=== PATIENT | female | born 1970 | race African-American/Black ===

== ENCOUNTER 2016-07-01 05:26 | Emergency (ER) | payer MEDICAID ==
[~2016-07-01] VITALS: Ht 165.1 cm; Wt 50.8 kg
[2016-07-01] MEDS ORDERED: diphenhdrAMINE HCL 25 MG CAP PO ONE ×2 (05:49→06:15)
[2016-07-01 06:21] VITALS: BP 118/77
== END 2016-07-01 06:53 | disposition home or self-care (01) ==
LOC: ER 05:27
DX: T78.40XA Allergy, unspecified, initial encounter (principal); X58.XXXA Exposure to other specified factors, initial encounter; Z87.440 Personal history of urinary (tract) infections; Z88.2 Allergy status to sulfonamides
CPT/HCPCS: 82962

== ENCOUNTER 2016-10-30 18:17 | Emergency (ER) | payer MEDICAID ==
[~2016-10-30] VITALS: Ht 165.1 cm; Wt 50.8 kg
[2016-10-30 18:45] VITALS: BP 113/76
[2016-10-30] MEDS ORDERED: IBUPROFEN 600 MG TAB PO ONE (21:30)
[2016-10-30] MEDS ORDERED: BACLOFEN 10 MG TAB PO ONE (21:30)
[2016-10-30] MEDS ORDERED: ACETAMINOPHEN 500 MG TAB PO ONE (22:15)
== END 2016-10-31 00:18 | disposition home or self-care (01) ==
LOC: ER 18:19
DX: S46.811A Strain of other muscles, fascia and tendons at shoulder and upper arm level, right arm, initial encounter (principal); Z88.1 Allergy status to other antibiotic agents; V43.52XA Car driver injured in collision with other type car in traffic accident, initial encounter; Y93.89 Activity, other specified; Y92.89 Other specified places as the place of occurrence of the external cause; Y99.8 Other external cause status
CPT/HCPCS: 72040

== ENCOUNTER 2017-03-18 15:16 | Emergency (ER) | payer MEDICAID ==
[~2017-03-18] VITALS: Ht 165.1 cm; Wt 55.3 kg
[2017-03-18 15:42] VITALS: BP 119/83
[2017-03-18 16:50] LABS: Basophils # (auto) 0.1 uL; Basophils % (auto) 1.2 % (0.0-2.0); Eosinophils # (auto) 0.1 uL; Eosinophils % (auto) 1.9 % (0.0-7.0); Hematocrit 44.5 % (36.0-46.0); Hemoglobin 14.5 g/dL (12.2-16.2); Lymphocytes # (auto) 1.2 uL; Mean Corpuscular Hemoglobin 29.6 pg (28.0-32.0); Mean Corpuscular Hgb Conc. 32.6 g/dL (32.0-36.0); Mean Corpuscular Volume 90.8 fL (80.0-100.0); Monocytes # (auto) 0.4 uL; Monocytes % (auto) 6.7 % (0.0-12.0); Neutrophils # (auto) 3.5 uL; Neutrophils % (auto) 67.2 % (37.0-80.0); Nucleated Red Blood Cells % 0.2 %; Platelet Count (auto) 291 10^3/uL (140-450); Red Cell Distribution Width 13.4 % (11.8-14.3); White Blood Cell 5.2 10^3/uL (4.4-10.8)
[2017-03-18 16:56] LABS: Urine Bacteria NONE SEEN /hpf (None Seen); Urine Blood Negative /uL (Negative); Urine Specific Gravity 1.018 (1.001-1.035); Urine WBC 1 /hpf (0 - 5)
[2017-03-18 17:04] LABS: Albumin 4.2 g/dL (3.4-5.0); BUN/Creatinine Ratio 16.8; Calcium 9.2 mg/dL (8.5-10.1); Potassium 3.8 mmol/L (3.5-5.1)
[2017-03-18 17:07] LABS: Bilirubin, Total 0.4 mg/dL (0.2-1.0)
== END 2017-03-18 20:01 | disposition left against medical advice (07) ==
LOC: ER 15:16
DX: R10.2 Pelvic and perineal pain (principal); M54.5 Low back pain; Z53.21 Procedure and treatment not carried out due to patient leaving prior to being seen by health care provider
CPT/HCPCS: 36415; 80053; 81001; 81025; 85025

== ENCOUNTER 2017-04-04 12:54 | Emergency (ER) | payer MEDICAID ==
[~2017-04-04] VITALS: Ht 165.1 cm; Wt 55.3 kg
[2017-04-04 14:16] LABS: Basophils # (auto) 0 uL; Basophils % (auto) 0.6 % (0.0-2.0); Eosinophils # (auto) 0.1 uL; Eosinophils % (auto) 1.3 % (0.0-7.0); Hematocrit 41.8 % (36.0-46.0); Hemoglobin 13.7 g/dL (12.2-16.2); Lymphocytes # (auto) 1.2 uL; Lymphocytes % (auto) 30.5 % (10.0-50.0); Mean Corpuscular Hemoglobin 29.6 pg (28.0-32.0); Mean Corpuscular Hgb Conc. 32.9 g/dL (32.0-36.0); Mean Corpuscular Volume 89.9 fL (80.0-100.0); Monocytes # (auto) 0.3 uL; Monocytes % (auto) 8.1 % (0.0-12.0); Neutrophils # (auto) 2.4 uL; Neutrophils % (auto) 59.5 % (37.0-80.0); Platelet Count (auto) 281 10^3/uL (140-450); Red Blood Cells 4.65 10^6/uL (4.0-5.20)
[2017-04-04 14:28] LABS: Alanine Aminotransferase 23 U/L (13-56); Alkaline Phosphatase 53 U/L (45-117); Anion Gap 8 (5-15); Aspartate Aminotransferase 18 U/L (15-37); BUN/Creatinine Ratio 12.2; Bilirubin, Total 0.6 mg/dL (0.2-1.0); Blood Urea Nitrogen 14 mg/dL (7-18); Calcium 8.7 mg/dL (8.5-10.1); Carbon Dioxide 27 mmol/L (21-32); Chloride 107 mmol/L (98-107); GFR African American 65 mL/min; GFR Non-African American 54 mL/min; Glucose 89 mg/dL (74-106); Potassium 3.8 mmol/L (3.5-5.1); Sodium 142 mmol/L (136-145); Total Protein 7.8 g/dL (6.4-8.2)
[2017-04-04 20:41] VITALS: BP 121/79
== END 2017-04-04 21:41 | disposition home or self-care (01) ==
LOC: ER 12:54
DX: R07.89 Other chest pain (principal); Z88.2 Allergy status to sulfonamides
CPT/HCPCS: 36415; 71046; 80053; 84484; 85025; 93005

== ENCOUNTER 2017-10-16 22:44 | Emergency (ER) | payer MEDICAID ==
[~2017-10-16] VITALS: Ht 165.1 cm; Wt 52.6 kg
[2017-10-17] MEDS ORDERED: cefTRIAXone SOD 1,000 MG VL IM ONE (00:15)
[2017-10-17] MEDS ORDERED: KETOROLAC TROMETH 30 MG/ML 1ML VIAL IM ONE (00:15)
[2017-10-17] MEDS ORDERED: SODIUM CHLORIDE 0.9% 500 ML IV ONE (01:30)
[2017-10-17] MEDS ORDERED: ONDANSETRON HCL 4 MG/2 ML VIAL IV ONE (01:30)
[2017-10-17] MEDS ORDERED: HYDROmorphone HCL 2 MG/ML VL IV ONE (01:30)
[2017-10-17] MEDS ORDERED: cefTRIAXone 1GM/10ml IVPUSH 10 ML IV ONE (01:36)
[2017-10-17 01:49] VITALS: BP 110/83
== END 2017-10-17 03:11 | disposition home or self-care (01) ==
LOC: ER 22:45
DX: R10.9 Unspecified abdominal pain (principal); R11.10 Vomiting, unspecified; K08.89 Other specified disorders of teeth and supporting structures; Z88.2 Allergy status to sulfonamides
CPT/HCPCS: 96361; 96372; 96374; 96375; 99284; J0696; J1170; J1885; J2405; J7030

== ENCOUNTER 2018-10-03 10:56 | Emergency (ER) | payer MEDICAID ==
[~2018-10-03] VITALS: Ht 165.1 cm; Wt 54.9 kg
[2018-10-03 12:42] VITALS: BP 114/69
[2018-10-03 13:57] LABS: Basophils # (auto) 0 uL; Basophils % (auto) 1.3 % (0.0-2.0); Eosinophils # (auto) 0.1 uL; Hematocrit 44.8 % (36.0-46.0); Hemoglobin 14.7 g/dL (12.2-16.2); Lymphocytes # (auto) 1.2 uL; Lymphocytes % (auto) 31.3 % (10.0-50.0); Mean Corpuscular Hemoglobin 29.5 pg (28.0-32.0); Mean Corpuscular Hgb Conc. 32.8 g/dL (32.0-36.0); Mean Corpuscular Volume 89.9 fL (80.0-100.0); Monocytes # (auto) 0.4 uL; Monocytes % (auto) 9.6 % (0.0-12.0); Neutrophils # (auto) 2.1 uL; Neutrophils % (auto) 55.8 % (37.0-80.0); Nucleated Red Blood Cells % 0.3 %; Platelet Count (auto) 274 10^3/uL (140-450); Red Blood Cells 4.98 10^6/uL (4.0-5.20); Red Cell Distribution Width 13.2 % (11.8-14.3); White Blood Cell 3.8 10^3/uL (4.4-10.8)
[2018-10-03 14:00] LABS: Urine Bacteria NONE SEEN /hpf (None Seen); Urine Blood Negative /uL (Negative); Urine Specific Gravity 1.012 (1.001-1.035); Urine WBC 1 /hpf (0 - 5)
[2018-10-03 14:08] LABS: Albumin 4.4 g/dL (3.4-5.0); Calcium 8.9 mg/dL (8.5-10.1); Potassium 3.6 mmol/L (3.5-5.1)
[2018-10-03 14:09] LABS: BUN/Creatinine Ratio 11.6
[2018-10-03 14:11] LABS: Bilirubin, Total 0.4 mg/dL (0.2-1.0); Total Protein 8.2 g/dL (6.4-8.2)
== END 2018-10-03 14:27 | disposition home or self-care (01) ==
LOC: ER 10:57
DX: N83.202 Unspecified ovarian cyst, left side (principal); K21.9 Gastro-esophageal reflux disease without esophagitis; Z87.440 Personal history of urinary (tract) infections; Z88.2 Allergy status to sulfonamides
CPT/HCPCS: 36415; 74176; 80053; 81001; 85025

== ENCOUNTER 2018-12-01 05:28 | Emergency (ER) | payer MEDICAID ==
[~2018-12-01] VITALS: Ht 165.1 cm; Wt 52.6 kg
[2018-12-01 07:19] LABS: Basophils # (auto) 0 uL; Basophils % (auto) 0.8 % (0.0-2.0); Eosinophils # (auto) 0.1 uL; Eosinophils % (auto) 2.2 % (0.0-7.0); Hematocrit 39.6 % (36.0-46.0); Lymphocytes % (auto) 23.9 % (10.0-50.0); Mean Corpuscular Hemoglobin 29.5 pg (28.0-32.0); Mean Corpuscular Hgb Conc. 32.9 g/dL (32.0-36.0); Mean Corpuscular Volume 89.6 fL (80.0-100.0); Monocytes # (auto) 0.4 uL; Monocytes % (auto) 9.6 % (0.0-12.0); Neutrophils # (auto) 2.6 uL; Neutrophils % (auto) 63.5 % (37.0-80.0); Nucleated Red Blood Cells % 0.1 %; Platelet Count (auto) 223 10^3/uL (140-450); Red Blood Cells 4.42 10^6/uL (4.0-5.20); Red Cell Distribution Width 13.4 % (11.8-14.3); White Blood Cell 4.1 10^3/uL (4.4-10.8)
[2018-12-01 07:35] LABS: Alanine Aminotransferase 13 U/L (13-56); Albumin 3.8 g/dL (3.4-5.0); Anion Gap 6 (5-15); Aspartate Aminotransferase 9 U/L (15-37); BUN/Creatinine Ratio 9.9; Blood Urea Nitrogen 10 mg/dL (7-18); Calcium 8.5 mg/dL (8.5-10.1); Carbon Dioxide 24 mmol/L (21-32); Chloride 110 mmol/L (98-107); GFR African American 75 mL/min; GFR Non-African American 62 mL/min; Glucose 95 mg/dL (74-106); Potassium 3.9 mmol/L (3.5-5.1); Sodium 140 mmol/L (136-145)
[2018-12-01 07:40] LABS: Alkaline Phosphatase 48 U/L (45-117); Bilirubin, Total 0.5 mg/dL (0.2-1.0); Total Protein 7.2 g/dL (6.4-8.2)
[2018-12-01 07:47] VITALS: BP 108/68
== END 2018-12-01 08:50 | disposition home or self-care (01) ==
LOC: ER 05:28
DX: F41.9 Anxiety disorder, unspecified (principal); R07.89 Other chest pain; Z88.2 Allergy status to sulfonamides
CPT/HCPCS: 36415; 71045; 80053; 83880; 84484; 85025; 93005

== ENCOUNTER 2020-05-28 19:14 | Emergency (ER) | payer MEDICAID ==
[~2020-05-28] VITALS: Ht 165.1 cm; Wt 50.8 kg
[2020-05-28 23:37] LABS: Basophils # (auto) 0 10 ^3/uL (0-0.2); Basophils % (auto) 0.9 % (0.0-2.0); Eosinophils # (auto) 0.1 10 ^3/uL (0-0.8); Eosinophils % (auto) 1.8 % (0.0-7.0); Hematocrit 40.4 % (36.0-46.0); Hemoglobin 13.5 g/dL (12.2-16.2); Lymphocytes # (auto) 1.6 10 ^3/uL (0.4-5.4); Lymphocytes % (auto) 32.4 % (10.0-50.0); Mean Corpuscular Hemoglobin 29.4 pg (28.0-32.0); Mean Corpuscular Hgb Conc. 33.3 g/dL (32.0-36.0); Mean Corpuscular Volume 88.3 fL (80.0-100.0); Monocytes # (auto) 0.4 10 ^3/uL (0-1.3); Monocytes % (auto) 8.6 % (0.0-12.0); Neutrophils # (auto) 2.7 10 ^3/uL (1.6-8.6); Neutrophils % (auto) 56.3 % (37.0-80.0); Nucleated Red Blood Cells % 0.1 %; Platelet Count (auto) 293 10^3/uL (140-450); Red Blood Cells 4.58 10^6/uL (4.0-5.20); Red Cell Distribution Width 12.9 % (11.8-14.3); White Blood Cell 4.9 10^3/uL (4.4-10.8)
[2020-05-28 23:48] LABS: Anion Gap 9 (5-15); Blood Urea Nitrogen 13 mg/dL (7-18); Calcium 8.8 mg/dL (8.5-10.1); Carbon Dioxide 23 mmol/L (21-32); Chloride 106 mmol/L (98-107); Glucose 79 mg/dL (74-106); Potassium 3.3 mmol/L (3.5-5.1); Sodium 138 mmol/L (136-145)
[2020-05-28 23:50] LABS: BUN/Creatinine Ratio 13.1; Blood Alcohol < 3.0 mg/dL (0-5); GFR African American 76 mL/min; GFR Non-African American 63 mL/min
[2020-05-28 23:53] LABS: INR 1.14 (0.9-1.15); Partial Thromboplastin Time 30.5 sec (23.0-31.2)
[2020-05-29 00:11] LABS: Alanine Aminotransferase 22 U/L (13-56); Alkaline Phosphatase 59 U/L (45-117); Aspartate Aminotransferase 12 U/L (15-37); Bilirubin, Total 0.5 mg/dL (0.2-1.0); Total Protein 7.6 g/dL (6.4-8.2)
[2020-05-29 03:18] LABS: Urine Bacteria NONE SEEN /hpf (None Seen); Urine Blood Negative /uL (Negative); Urine Specific Gravity 1.012 (1.001-1.035); Urine WBC <1 /hpf (0 - 5)
[2020-05-29 04:00] VITALS: BP 142/86
[2020-05-29] MEDS ORDERED: LIDOCAINE VISCOUS 2% 15ML UD PO ONE (05:30)
[2020-05-29] MEDS ORDERED: ALUM & MAG HYDROX-SIMETH LIQ(MAALOX) 30 ML PO ONE (05:30)
== END 2020-05-29 05:35 | disposition home or self-care (01) ==
LOC: ER 19:14
DX: K21.9 Gastro-esophageal reflux disease without esophagitis (principal); R07.9 Chest pain, unspecified; R51.9 Headache, unspecified; Z88.2 Allergy status to sulfonamides
CPT/HCPCS: 36415; 36600; 70450; 71045; 80053; 80320; 81001; 82805; 83880; 84484; 85025; 85379; 85610; 85730; 93005

== ENCOUNTER 2022-11-08 09:01 | Emergency (ER) | payer MEDICAID ==
[~2022-11-08] VITALS: Ht 165.1 cm; Wt 52.2 kg
[2022-11-08] MEDS ORDERED: ACETAMINOPHEN 500 MG TAB PO ONE (11:45)
[2022-11-08 12:16] VITALS: BP 120/80; PULSE 94; RESP 16; TEMP 98; O2SAT 97
[2022-11-08] MEDS ORDERED: ACET-1080 PO (12:17)
[2022-11-08] MEDS ORDERED: PRED20TA2 PO (12:17)
== END 2022-11-08 12:18 | disposition home or self-care (01) ==
LOC: ER 09:01
DX: M54.42 Lumbago with sciatica, left side (principal); N83.202 Unspecified ovarian cyst, left side; K59.00 Constipation, unspecified; K21.9 Gastro-esophageal reflux disease without esophagitis; Z79.899 Other long term (current) drug therapy; Z88.2 Allergy status to sulfonamides; Z88.5 Allergy status to narcotic agent
CPT/HCPCS: 74176

== ENCOUNTER 2024-01-09 09:35 | Emergency (ER) | payer MEDICAID ==
[~2024-01-09] VITALS: Ht 165.1 cm; Wt 58.9 kg
[~2024-01-09 09:35] MED LIST: ACET-1080 PO; PRED20TA2 PO
[2024-01-09 10:43] LABS: Urine Bacteria FEW /hpf (None Seen); Urine Blood Negative /uL (Negative); Urine Clarity Clear (Clear); Urine Color Light-Yellow (Yellow); Urine Mucus FEW (None Seen); Urine Protein, UAD Negative (Negative); Urine Specific Gravity 1.017 (1.001-1.035); Urine Urobilinogen Normal (Negative); Urine WBC 19 /hpf (0 - 5)
--- NOTE | 2024-01-09 11:13 | ED.PDOC ---
History of Present Illness HPI Comments 53-year-old female who comes in with chief complaint of some mild right flank pain times approximately two weeks. There has been no nausea or vomiting. The patient denies any fever or chills. There has been no diarrhea. The patient states that the pain is approximately a 7/10. She denies any hematuria. The patient was had UTIs in the past and states that the symptoms feels somewhat similar. Chief Complaint: Flank Pain Time Seen by MD: 10:37 Primary Care Provider: SOCORRO Reviewed Notes: Nurses Notes, Medications, Allergies (Allergies listed above) Allergies: Coded Allergies: Codeine (Verified Allergy, Unknown, 11/08/22) Sulfa Antibiotics (Verified Allergy, Unknown, 04/04/17) Home Meds Active Scripts Ciprofloxacin Hcl (Cipro) 500 Mg Tab, 1 TAB PO BID, #14 TAB Prov:MARY TAYLOR MD 01/09/24 Prednisone (Prednisone) 20 Mg Tab, 40 MG PO DAILY, #20 TAB Prov:VENKATA RANDALL 11/08/22 Acetaminophen (Tylenol 8 Hour Arthritis) 650 Mg Tab, 650 MG PO TID, #30 TAB Prov:VENKATA RANDALL 11/08/22 Information Source: Patient Mode of Arrival: Ambulatory Severity: Mild Timing: Days Duration: Since onset Prehospital treatment: None Associated signs and symptoms Right flank pain with dysuria Past Medical History PAST MEDICAL HISTORY: Gallstones, GERD, UTI'S Surgical History: 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: 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, Ovarian Cysts, Uterine Fibroids Family History Family History: No family hx of Cancer Social History Smoker: Non-Smoker Alcohol: Rarely Drugs: Denies Drug Use Lives In: Home Constitutional: denies: chills, diaphoresis, fatigue, fever, malaise, sweats, weakness, others EENTM: denies: blurred vision, double vision, ear bleeding, ear discharge, ear drainage, ear pain, ear ringing, eye pain, eye redness, hearing loss, mouth pain, mouth swelling, nasal discharge, nose bleeding, nose congestion, nose pain, photophobia, tearing, throat pain, throat swelling, voice changes, others Respiratory: denies: cough, hemoptysis, orthopnea, SOB at rest, shortness of breath, SOB with excertion, stridor, wheezing, others Cardiovascular: denies: chest pain, dizzy spells, diaphoresis, Dyspnea on exertion, edema, irregular heart beat, left arm pain, lightheadedness, palpitations, PND, syncope, others Gastrointestinal: denies: abdomen distended, abdominal pain, blood streaked bowels, constipated, diarrhea, dysphagia, difficulty swallowing, hematemesis, melena, nausea, poor appetite, poor fluid intake, rectal bleeding, rectal pain, vomiting, others Genitourinary: reports: dysuria, flank pain; denies: abnormal vagina bleeding, burning, dyspareunia, frequency, hematuria, incontinence, pain, , vagina discharge, urgency, others Neurological: denies: dizziness, fainting, headache, left sided numbness, left sided weakness, numbness, paresthesia, pre-existing deficit, right sided numbness, right sided weakness, seizure, speech problems, tingling, tremors, weakness, others Musculoskeletal: denies: back pain, gout, joint pain, joint swelling, muscle pain, muscle stiffness, neck pain, others Integumetry: denies: bruises, change in color, change in hair/nails, dryness, laceration, lesions, lumps, rash, wounds, others Allergic/Immunocompromised: denies: Difficulty Healing, Frequent Infections, Hives, Itching, others Hematologic/Lymphatic: denies: anemia, blood clots, easy bleeding, easy bruising, swollen glands, others Endocrine: denies: excessive hunger, excessive sweating, excessive thirst, excessive urination, flushing, intolerance to cold, intolerance to heat, unexplained weight gain, unexplained weight loss, others Psychiatric: denies: anxiety, bipolar disorder, depression, hopeless, panic disorder, schizophrenia, sleepless, suicidal, others Physical Exam General Appearance: No Apparent Distress HEENT: Normal ENT Inspection, Pharynx Normal, TMs Normal Neck: Full Range of Motion, Non-Tender, Normal, Normal Inspection Respiratory: Chest Non-Tender, Lungs Clear, No Accessory Muscle Use, No Respira tory Distress, Normal Breath Sounds Cardiovascular: No Edema, No JVD, No Murmur, No Gallop, Normal Peripheral Pulses, Regular Rate/Rhythm Breast Exam: Deferred Gastrointestinal: No Organomegaly, Non Tender, No Pulsatile Mass, Normal Bowel Sounds, Soft Genitalia: Deferred Pelvic: Deferred Rectal: Deferred Extremities: No calf tenderness, Normal capillary refill, Normal inspection, Normal range of motion, Non-tender, No pedal edema Musculoskeletal : Apperance: Normal Neurologic: Alert, mammography tech II-XII nml as Tested, No Motor Deficits, Normal Affect, Normal Mood, No Sensory Deficits Cerebellar Function: Normal Reflexes: Normal Skin: Dry, Normal Color, Warm Lymphatic: No Adenopathy Was a procedure done? Was a procedure done?: No Differential Dx Considerations may include: UTI, kidney stones X-Ray, Labs, Meds, VS Vital Signs Date Time Temp Pulse Resp B/P (MAP) Pulse Ox O2 Delivery O2 Flow Rate FiO2 01/09/24 09:43 98.1 100 18 131/87 (102) 97 Lab Test 01/09/24 10:01 Range/Units Urine Color Light-yellow Yellow Urine Clarity Clear Clear Urine pH 5.0 5.0-9.0 Urine Specific Corea 1.017 1.001-1.035 Urine Protein Negative Negative Urine Ketones Negative Negative Urine Blood Negative Negative /uL Urine Nitrite Negative Negative Urine Bilirubin Negative Negative Urine Urobilinogen Normal Negative mg/dL Urine Leukocyte Esterase 3+ Negative /uL Urine RBC 1 0 - 4 /hpf Urine WBC 19 0 - 5 /hpf Urine Squamous Epithelial Cells Few <5 /hpf Urine Bacteria Few H None Seen /hpf Urine Mucus Few None Seen Urine Glucose Normal Normal mg/dL The urine test is positive for UTI The patient was given Tylenol here in the emergency for the pain The patient was given a prescription of Cipro The patient will follow up with the primary care doctor The patient will return to the emergency department's condition worsens. Images Reviewed?: Images reviewed and evaluated by me Time of 1ST Reevaluation: 11:12 Reevaluation 1ST: Improved Patient Education/Counseling: Diagnosis, Treatment, Prognosis, Need For Follow Up Family Education/Counseling: No Family Present Departure 1 Departure Time of Disposition: 11:13 Impression: Primary Impression: UTI (urinary tract infection) Qualified Codes: N30.00 - Acute cystitis without hematuria Disposition: 01 HOME / SELF CARE / HOMELESS Condition: Fair e-Prescriptions Ciprofloxacin Hcl (Cipro) 500 Mg Tab 1 TAB PO BID, #14 TAB Prov: MARY TAYLOR MD 01/09/24 Discharged With: Self Critical Care Note Critical Care Time?: No Stability Stability form required: No Heart Score Heart Score: Heart Score Response (Comments) Value History N/A 0 EKG N/A 0 Age N/A 0 Risk Factors N/A 0 Troponin N/A 0 Total 0 MARY TAYLOR MD Jan 09, 2024 11:13
[2024-01-09] MEDS ORDERED: CIPR-173 PO (11:14)
[2024-01-09] MEDS: ACETAMINOPHEN 325 MG TAB PO ONE (11:26)
[2024-01-09 11:32] VITALS: BP 119/81; PULSE 77; RESP 17; O2SAT 100
== END 2024-01-09 11:35 | disposition home or self-care (01) ==
LOC: ER 09:35
DX: N39.0 Urinary tract infection, site not specified (principal); K21.9 Gastro-esophageal reflux disease without esophagitis; Z79.52 Long term (current) use of systemic steroids; Z88.2 Allergy status to sulfonamides; Z88.5 Allergy status to narcotic agent; Z90.710 Acquired absence of both cervix and uterus
CPT/HCPCS: 81001

== ENCOUNTER 2024-08-24 10:29 | Emergency (ER) | payer MEDICAID ==
[~2024-08-24] VITALS: Ht 165.1 cm; Wt 55.5 kg
[~2024-08-24 10:29] MED LIST changes: +CIPR-173 PO
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
[2024-08-24 15:07] VITALS: BP 130/85; PULSE 83; RESP 20; TEMP 97.9; O2SAT 99
== END 2024-08-24 15:17 | disposition home or self-care (01) ==
LOC: ER 10:29
DX: M54.2 Cervicalgia (principal); M54.9 Dorsalgia, unspecified; M79.18 Myalgia, other site; F10.90 Alcohol use, unspecified, uncomplicated; K21.9 Gastro-esophageal reflux disease without esophagitis; Z87.440 Personal history of urinary (tract) infections; Z90.710 Acquired absence of both cervix and uterus; Z88.5 Allergy status to narcotic agent; Z79.52 Long term (current) use of systemic steroids; Z88.2 Allergy status to sulfonamides; V89.2XXA Person injured in unspecified motor-vehicle accident, traffic, initial encounter; Y93.89 Activity, other specified; Y92.488 Other paved roadways as the place of occurrence of the external cause; Y99.8 Other external cause status
CPT/HCPCS: 72100

== ENCOUNTER 2024-08-30 11:30 | Emergency (ER) | payer MEDICAID ==
[~2024-08-30] VITALS: Ht 165.1 cm; Wt 54.5 kg
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
[2024-08-30 11:59] VITALS: BP 105/74; PULSE 99; RESP 15; TEMP 98; O2SAT 99
[2024-08-30] MEDS: KETOROLAC TROMETH 60MG/2ML VIAL IM ONE (12:02)
== END 2024-08-30 12:04 | disposition home or self-care (01) ==
LOC: ER 11:33
DX: S39.012A Strain of muscle, fascia and tendon of lower back, initial encounter (principal); Z90.710 Acquired absence of both cervix and uterus; Z88.5 Allergy status to narcotic agent; Z88.2 Allergy status to sulfonamides; V43.52XA Car driver injured in collision with other type car in traffic accident, initial encounter; Y93.89 Activity, other specified; Y92.410 Unspecified street and highway as the place of occurrence of the external cause; Y99.8 Other external cause status